=== PATIENT | female | born 1970 | race Caucasian/White ===

== ENCOUNTER 2024-09-06 15:17 | Emergency (ER) | payer OTHER ==
[~2024-09-06] VITALS: Ht 149.9 cm; Wt 67.2 kg
[2024-09-06 15:29] VITALS: BP 137/80; PULSE 87; RESP 15; TEMP 97; O2SAT 98
--- NOTE | 2024-09-06 15:37 | Physician Documentation ---
History of Present Illness ~ Chief Complaint: Bite-insect Stated Complaint: BITE Time Seen by MD: 15:35 HPI Patient is a 54-year-old female that presents to the emergency department today for evaluation of a bug bite on her left forearm that she reports she sustained 2 nights ago. Warts that the bite initially itched but has not itched in the last day or so. Reported there was an area of skin over the top it appeared that it could be removed so she has removed the skin over the top of the but bug bite leaving a an open area currently. Reports that she took half of a [place] 10. Denies any fever or constitutional symptoms at the time. She reports that she is traveling currently and does not live locally. Medication Reconciliation Allergies: Coded Allergies: carisoprodol (Verified Allergy, Unknown, 09/06/24) codeine (Verified Allergy, Unknown, 09/06/24) Review of Systems All Other Systems at this time: Reviewed and Negative ROS As stated above in the HPI, otherwise all systems are reviewed and negative. Physical Exam Vital Signs: Temperature: 97.0, Source: Temporal, Heart Rate: 87, Respiratory Rate: 15, BP: 137/80, Pulse Oximetry: 98, Weight: 67.250 Physical Exam VITALS: Reviewed and as above. GENERAL: Alert, no apparent distress. HEENT: Normocephalic, atraumatic, PERRL, EOMI, dry mucosa, no erythema RESPIRATORY: Lungs clear, normal breath sounds, no respiratory distress. CHEST: No accessory muscle use, no retractions CV: Regular rate, rhythm, no edema, no murmur, No: JVD GI: Soft, non-tender, bowels sounds present, no rebound, guarding, or rigidity BACK: No CVA tenderness, or swelling MUSCULOSKELETAL No deformities, no edema SKIN: Warm and dry, area of edema and erythema noted to the left forearm, center consistent with possible insect bite. NEURO: Oriented x4, No motor or sensory deficit PSYCH: Normal mood and affect, no agitation Progress Results/Orders Results/Orders Vital Signs 09/06/24 15:29 Temp 97.0 Pulse 87 Resp 15 B/P (MAP) 137/80 Pulse Ox 98 Medical Decision Making Findings This patient presents with symptoms consistent with acute hypersensitivity reaction, likely acute allergic reaction or possible reaction to a bug bite. Presentation not consistent with acute anaphylaxis (lack of pulmonary, dermatologic, cardiovascular or GI symptoms, lack of hypotension or exposure to known allergen), angioedema, serum sickness (no recent drug exposure, lacks fevers, arthralgias). No evidence of airway compromise or shock at this time. Patient improved with H1/H2 blockers, steroids. No need for epinephrine. Prescribed patient EpiPen Rx, and patient to keep food diary, and to follow up with PMD for allergy testing. Open area to Center of affected area. Possible concern for infection. Going to prescribe course of Keflex x7 days. Departure Disposition: HOME / SELF CARE / HOMELESS Impression: Primary Impression: Insect bites Additional Impressions: Bee sting Cellulitis Condition: Stable Additional Instructions: Instructions provided today including keeping area clean and dry please take antibiotics as prescribed take NSAIDs needed for decreased inflammation. Please follow up with her primary care provider once he arrived back home. If you have any additional concerns or worsening of symptoms while here in town please return to the emergency department. Referrals: NO PRIMARY CARE PROVIDER (PCP) Prescriptions Cephalexin*Monohydrate* (Keflex*) 500 Mg Capsule 1 CAP PO QID for celulitis for 7 Days, #40 CAP Prov: DIANA BALTAZAR 09/06/24 Education Educated: Patient Educated regarding: diagnosis, treatment, need for follow up Signature Scribe Signature: . Attestation: Scribed for Diana Baltazar by EL Magana . 09/06/24 17:09 DIANA BALTAZAR Sep 06, 2024 15:37
[2024-09-06] MEDS ORDERED: CEPH-585 PO (17:09)
== END 2024-09-06 17:16 | disposition home or self-care (01) ==
LOC: ER 15:18
DX: S50.862A Insect bite (nonvenomous) of left forearm, initial encounter (principal); L03.114 Cellulitis of left upper limb; Z88.5 Allergy status to narcotic agent; W57.XXXA Bitten or stung by nonvenomous insect and other nonvenomous arthropods, initial encounter; Y93.89 Activity, other specified; Y92.89 Other specified places as the place of occurrence of the external cause; Y99.8 Other external cause status
CPT/HCPCS: 99283